=== PATIENT | female | born 1995 | race Caucasian/White ===

== ENCOUNTER 2019-07-17 14:54 | Observation (INO) | payer OTHER, SELFPAY ==
[2019-07-17 15:30] VITALS: BMI 35.5
[2019-07-17 15:31] VITALS: BP 119/81; PULSE 96
[2019-07-17 15:35] LABS: Add Urine Microscopic? YES; Appearance Urine Cloudy (Clear); Bacteria Urine Trace /hpf; Bilirubin Urine Negative (Negative); Blood Urine Negative (Negative); Color Urine Straw (Yellow); Glucose Urine UA Negative (Negative); Ketones Urine Negative (Negative); Leukocyte Esterase Ur 1+ LEU/UL (NEGATIVE); Mucus Urine Rare /lpf; Nitrate Urine Negative (Negative); Protein Urine Negative (Negative); RBC Urine 0-2 /hpf (0-2); Specific Grav Ur 1.008 (1.001-1.035); Squamous Epithelial Cell Urine Many /hpf (Few); Urobilinogen Urine Negative mg/dL (<2.0); WBC Urine 0-3 /hpf (0-3)
[2019-07-17 15:45] VITALS: BP 125/81; PULSE 89
[2019-07-17 16:01] VITALS: BP 124/73; PULSE 94
--- NOTE | 2019-07-17 16:14 | OBADM ---
This patient, Tanja Jackson, admitted to the OB room OB Post 115 for observation. Patient/family oriented to hospital policies and general routines including ID bracelet, bed and alarms, visiting hours, pain management, procedures, bathroom and other care routines, personal items, smoking policy, room service/diet, and visiting hours. Patient/Family are encouraged to report perceived risks to care and to ask questions if they do not understand what they are told or what they should do.
--- NOTE | 2019-08-11 19:51 | P.PNOB_ITS ---
OB - Triage/Final Diagnosis Evaluation Laboratory results: Laboratory Tests 07/17/19 15:22 Urine Color Straw Urine Appearance Cloudy H Urine pH 7.0 Ur Specific White [place] 1.008 Urine Protein Negative Urine Glucose (UA) Negative Urine Ketones Negative Ur Blood (Man) Negative Urine Nitrate Negative Urine Bilirubin Negative Urine Urobilinogen Negative Ur Leukocyte Esterase 1+ H Urine RBC 0-2 Urine WBC 0-3 Ur Squamous Epith Cells Many H Urine Bacteria Trace Urine Mucus Rare Final Diagnosis (1) Vaginal pain: Code(s): R10.2 - Pelvic and perineal pain Status: Acute
== END 2019-07-17 16:05 | disposition home or self-care (01) ==
PROVIDERS: Admitting Provider Obstetrics & Gynecology; Visit Provider Obstetrics & Gynecology
DX: O26.893 Other specified pregnancy related conditions, third trimester (principal); R10.2 Pelvic and perineal pain; Z3A.33 33 weeks gestation of pregnancy
CPT/HCPCS: 81001; 87086; G0378; G0379

== ENCOUNTER 2019-08-09 19:40 | Observation (INO) | payer OTHER, SELFPAY ==
[2019-08-09 19:45] VITALS: BMI 35.0
--- NOTE | 2019-08-09 22:41 | OBADM ---
This patient, Tanja Jackson, admitted to the OB room Labor/Delivery/Recovery 108 for observation. Patient/family oriented to hospital policies and general routines including ID bracelet, bed and alarms, visiting hours, pain management, procedures, bathroom and other care routines, personal items, smoking policy, room service/diet, and visiting hours. Patient/Family are encouraged to report perceived risks to care and to ask questions if they do not understand what they are told or what they should do.
--- NOTE | 2019-08-13 07:53 | PM.OBTRLD ---
OB - Triage/Final Diagnosis Visit Information Date of evaluation: 08/09/19 Reason for evaluation: threatened labor
--- NOTE | 2019-08-15 07:21 | PM.OBTRLD ---
OB - Triage/Final Diagnosis Visit Information Date of evaluation: 08/12/19 Reason for evaluation: threatened labor
== END 2019-08-09 22:30 | disposition home or self-care (01) ==
PROVIDERS: Admitting Provider Obstetrics & Gynecology; Visit Provider Obstetrics & Gynecology
DX: O47.03 False labor before 37 completed weeks of gestation, third trimester (principal); Z3A.36 36 weeks gestation of pregnancy
CPT/HCPCS: G0378; G0379

== ENCOUNTER 2019-08-21 21:47 | Outpatient (CLI) | payer OTHER, SELFPAY | END 2019-08-21 23:20 | disposition home or self-care (01) | PROVIDERS: Visit Provider Obstetrics & Gynecology | DX: O42.90 Premature rupture of membranes, unspecified as to length of time between rupture and onset of labor, unspecified weeks of gestation (principal); Z3A.00 Weeks of gestation of pregnancy not specified | CPT/HCPCS: 59025; 84112 ==

== ENCOUNTER 2019-08-27 04:50 | Inpatient (IN) | payer OTHER, SELFPAY ==
[2019-08-27] VITALS (83 sets, daily range): BP systolic 92–135; BP diastolic 46–122; PULSE 65–134; RESP 16; TEMP 36.3–36.6; O2SAT 95–100; BMI 35.9
--- NOTE | 2019-08-27 05:22 | LDADM ---
This patient, Tanja Jackson, was admitted to Labor/Delivery/Recovery 103 on 08/27/19 at 04:50. Plans for labor, pain management and were discussed with patient. Patient/family oriented to hospital policies and general routines including ID bracelet, bed and alarms, visiting hours, pain management, procedures, bathroom and other care routines, personal items, smoking policy, room service/diet and guest tray routines, security routines, and visiting hours. Patient/Family are encouraged to report perceived risks to care and to ask questions if they do not understand what they are told or what they should do. See OBIX for further documentation.
[2019-08-27] MEDS: LACTATED RINGERS 1,000 ML 125 ML IV CONT ×3 (05:34→09:51)
[2019-08-27 05:46] LABS: Basophils Percent Auto 0.3 % (0.2-1.2); Eosinophils Absolute Auto 0.1 K/mm3 (0-0.3); Eosinophils Percent Auto 0.6 % (0-4.4); Hematocrit 36.9 % (37.0-47.0); Hemoglobin 11.6 g/dL (12.0-15.0); Immature Granulocyte Absolute 0.05 K/mm3 (0.00-0.031); Immature Granulocyte Percent A 0.5 % (0-0.5); Lymphocytes Absolute Auto 2.91 K/mm3 (0.9-3.2); Lymphocytes Percent Auto 29.3 % (18.3-44.2); Mean Corpuscular HGB Conc 31.4 g/dl (32-36); Mean Corpuscular Hemoglobin 27.4 pg (26-34); Mean Platelet Volume 11.8 fl (7.4-10.4); Monocytes Percent Auto 9.6 % (2.6-8.5); Neutrophils Absolute Auto 5.9 K/mm3 (1.3-6.7); Neutrophils Percent Auto 59.7 % (45.5-73.1); Platelet Count Result 265 k/mm3 (150-375); Red Blood Count 4.24 M/mm3 (4.2-5.4); Red Cell Distribution Width 14.6 % (11.5-14.5); White Blood Count 9.9 K/mm3 (4.5-10.0)
--- NOTE | 2019-08-27 07:30 | WPDOBADMIT ---
Obstetrics - Admit Note Admission Note: record reviewed. No pertinent additions to the history and/or any subsequent changes in the physical findings that are not consistent with the expected course of the were found. MIL AROM large amount of clear odorless fluid Additions to the history and/or subsequent changes in the physical findings follow. None.
--- NOTE | 2019-08-27 09:35 | P.PNAN_ITS ---
Anes - Eval Pre Procedure Procedure: labor epidural Date/Time: 08/27/19 09:35 Surgeon: Tricia Preop Diagnosis: Labor pain Pre Op Diagnosis: Induction of labor Patient Data Age: 24 Gender: F Height: 1.73 m Weight: 107 kg Last Vital Signs Temp 36.5 C 08/27/19 09:00 Pulse 81 08/27/19 09:31 BP 119/68 08/27/19 09:31 Pulse Ox 100 08/27/19 09:32 Allergies Allergy/AdvReac Type Severity Reaction Status Date / Time No Known Allergies Allergy Unverified 01/18/16 09:00 Home Medications Medication Instructions Recorded Confirmed Type Vitamin 1 tablet PO DAILY 07/03/19 08/27/19 History Zyrtec 10 mg PO DAILY 08/06/19 08/06/19 History Laboratory Tests 08/27/19 08/27/19 08/27/19 05:14 05:14 05:14 WBC 9.9 K/mm3 K/mm3 (4.5-10.0) RBC 4.24 M/mm3 M/mm3 (4.2-5.4) Hgb 11.6 g/dL L g/dL (12.0-15.0) Hct 36.9 % L % (37.0-47.0) MCV 87.0 fl fl (80-100) MCH 27.4 pg pg (26-34) MCHC 31.4 g/dl L g/dl (32-36) RDW 14.6 % H % (11.5-14.5) Plt Count 265 k/mm3 k/mm3 (150-375) MPV 11.8 fl H fl (7.4-10.4) Immature Gran % (Auto) 0.5 % % (0-0.5) Neut % (Auto) 59.7 % % (45.5-73.1) Lymph % (Auto) 29.3 % % (18.3-44.2) [place] % (Auto) 9.6 % H % (2.6-8.5) Eos % (Auto) 0.6 % % (0-4.4) Baso % (Auto) 0.3 % % (0.2-1.2) Lymph # (Auto) 2.91 K/mm3 K/mm3 (0.9-3.2) [place] # (Auto) 1.0 K/mm3 H K/mm3 (0.1-0.6) Eos # (Auto) 0.1 K/mm3 K/mm3 (0-0.3) Baso # (Auto) 0.0 K/mm3 K/mm3 (0.0-0.1) Abs Immat Gran (auto) 0.05 K/mm3 H K/mm3 (0.00-0.031) Absolute Neuts (auto) 5.9 K/mm3 K/mm3 (1.3-6.7) Absolute Nucleated RBC 0.0 K/mm3 K/mm3 (0.0-0.012) Nucleated RBC % 0.0 % % (0.0-0.2) RPR Pending Blood Type O Positive Antibody Screen Negative Patient hx anesthesia problems: none Family hx anesthesia problems: none [facility] Family History Family History (Updated 08/06/19 @ 12:11 by Kamala Hernandez RN) Grandparent Breast cancer Social History Social History Smoking status: Never smoker Substance use: never Gender identity (if verbalized by the patient): Female Spiritual care concerns: No Exam Day of Procedure 08/27/19 09:35
[2019-08-27] MEDS: ONDANSETRON INJ 4 MG/2 ML VIAL IV PUSH (09:51)
--- NOTE | 2019-08-27 11:53 | P.PCNOB_ITS ---
OB - Delivery Note Procedure Delivery date: 08/27/19 events: Labor Induction Intrapartal events: None Induction method: AROM and per pitocin protocol Delivery monitor: external FHT and external uterine Route of delivery: Laceration description: Perineal - 1st Degree Delivery repair: vicryl Specimen: No Estimated blood loss (mL): 50 Anesthesia type: Epidural [place] Baby Date of : 08/27/19 Time of : 11:42 Weeks of gestation at delivery: 39 gender: Male Weight (pounds): 7 Weight (ounces): 4 presentation: vertex position: Left Occiput Anterior Placenta delivery description: Spontaneous score one minute: 9 score five minutes: 9
--- NOTE | 2019-08-27 14:16 | PC.NURSE ---
Patient transferred to post room #281 per wheelchair from labor and delivery. Support person present. Oriented to unit, room, information board, rooming in, admission packet and security measures. Patient verbalizes understanding.
[2019-08-27] MEDS: IBUPROFEN 600 MG TABLET PO (16:20)
[2019-08-28 05:42] LABS: Hematocrit 33.7 % (37.0-47.0); Hemoglobin 10.6 g/dL (12.0-15.0)
[2019-08-28 07:21] LABS: Rapid Plasma Reagin Non-Reactive (NonReactive)
--- NOTE | 2019-08-28 07:57 | PM.OBPNVD ---
OB - PN: Subj Subjective Date/time seen: 08/28/19 07:57 Patient comments: no complaints, pain well controlled and other (Lochia similar to menses) [place] baby status: doing well OB - PN: Obj Data Labs CBC & Chem 7: 08/28/19 04:33 Labs: Laboratory Results - last 24 hr 08/27/19 08/28/19 05:14 04:33 Hgb 10.6 L Hct 33.7 L RPR Non-reactive OB - PN A/P Plan day: 1 (s/p vaginal delivery, doing well) Plan: routine care Time Spent With Patient Time: Total time spent is greater than 50% in coordination of care (as documented) at patient's floor/unit and/or counseling patient: Exam Const: General: no acute distress GI: Inspection: other (Fundus firm and nontender at umbilicus) GI Palp: Yes Soft to palpation and No Tenderness to palpation present (GI) Extrem: General: no edema
[2019-08-28 08:40] VITALS: BP 116/63; PULSE 67; RESP 18; TEMP 36.3; O2SAT 99
[2019-08-28] MEDS: MULTIVIT/MIN/PREN/FOL AC/IRON TABLET 1 TAB PO (08:52)
[2019-08-28] MEDS: IBUPROFEN 600 MG TABLET PO (08:52)
--- NOTE | 2019-08-28 10:30 | PC.NURSE ---
Observed mother is able to independently latch with appropriate positioning/alignment. She denies any nipple discomfort, is feeding as required and waking infant to feed if needed. has had 8 effective feedings in the past 24 hours, and is currently meeting outcomes for weight, output, jaundice and feeding frequencies. Mother states she feels confident to continue effective at home. Reviewed transition to breast milk, signs of adequate intake, and engorgement/relief. Instructed to call ICP if intake/output less than required. Reviewed regular medications mother is taking. Information provided per Yoly. Reviewed community resources on the [facility] website and in the Mom/Baby guide. Stressed keeping accurate records of feeding/elimination with 24 hour discharge and call if less than required. Information on outpatient services provided. Mother has no further questions at this time.
--- NOTE | 2019-08-28 11:16 | PC.NURSE ---
Patient instructed on viewing the discharge video Mother & Baby Care, The First Two Weeks . Patient was given the opportunity and encouraged to ask questions. Patient verbalized understanding of information shared and has been given the mother/baby guide for home reference.
--- NOTE | 2019-08-28 12:58 | WPDANLDPN2 ---
Anes-Prog Note L&D Date/Time: 08/28/19 12:58 Comfortable throughout: labor and delivery Neuraxial method: epidural Epidural/Spinal procedure site: clean & non-tender Neuro status: Neuro function grossly intact. Cardiovascular status: normal Respiratory status: normal Airway patency: baseline Mental status: baseline Post-Op hydration status: normal Vital Signs: Last Vital Signs Temp 36.3 C L 08/28/19 08:40 Pulse 67 08/28/19 08:40 Resp 18 08/28/19 08:40 BP 116/63 08/28/19 08:40 Pulse Ox 99 08/28/19 08:40 Pain score (VAS): 0/10. Patient resting in bed at time of assessment, appears comfortable. Support person at bedside. Post-procedural complaints: none Patient feedback: Patient satisfied with anesthetic care.
--- NOTE | 2019-08-29 07:21 | PM.OBDSVD ---
OB - DS: Summary OB Procedures : None OB Procedures Intrapartum: Spontaneous Vag Delivery OB Procedures: : None Time Spent with Patient Time attestation: Total time spent providing and/or coordinating discharge services: DS: Data Data Completed and Pending Labs on day of discharge: Labs from last 24 hours 08/27/19 05:14 RPR Non-reactive Discharge Plan Discharge Attending physician on discharge: Rita Clarke Discharging Clinician: Odalys Velasquez Patient Disposition: Home, Self-Care Activity: may shower and pelvic rest Diet: regular Discharge Instructions: Education: Mom and Baby Guide Given to: Mother Follow-Up: Call your delivering provider's office for an appointment to be seen in: 4 Weeks Mom and baby should come to the [facility] for the follow-up appointment. Appointment Date/Time: August 29, 2019 at 8:00 am What to expect at your follow-up visit: Physical Assessment Call [phone] if you are unable to keep your appointment time. BREAST CARE: 1. Wear a snug supportive bra. 2. For engorgement discomfort: Breast Feeding: A. Apply warm moist washcloths B. Express milk as needed to relieve engorgement C. Wear loose clothing 3. For sore nipples: A. Identify correct latch-on B. Apply warm moist washcloths before and after nursing C. Air dry nipples after nursing D. May apply Lansinoh cream to nipples EPISIOTOMY/PERINEAL CARE: 1. Until bleeding stops, use your harrison bottle after urinating 2. Change your pad frequently throughout the day 3. You may take sitz baths several times a day (fill your bathtub with warm water and soak for 20 minutes.) Do NOT bathe in the water 4. No tub baths until seen by your physician - You may shower ACTIVITY: 1. Rest as much as possible. 2. Do not exercise or lift anything heavier than your baby (such as laundry or other children.) 3. Avoid stairs or driving as much as possible. 4. Do not put anything into the vagina. No douching, tampons, or sexual activity until seen by physician. NOTIFY PHYSICIAN IF YOU HAVE ANY QUESTIONS OR IF ANY OF THE FOLLOWING SYMPTOMS OCCUR: 1. If your incision becomes red, swollen, or more painful than what you have experienced in the hospital. 2. If your vaginal bleeding becomes foul smelling. 3. If your vaginal bleeding becomes more heavy than a period or if your bleeding changes from pink to bright red. However, you may pass an occasional walnut-sized clot once or twice for the first week . 4. If you experience a sharp, shooting pain in you calves. 5. If you discover a hard, reddened area on your breast or if you experience flu-like symptoms. DIET: 1. Eat regular, well-balanced meals. 2. Drink plenty of fluids daily. If , drink to thirst. Stand Alone Forms: General Discharge Information Follow-up/Referrals: Shaunna Kahn CNM [Certified Nurse Produce Weigher] - 4 Weeks Discharge Medications: New ibuprofen 600 mg Tablet 600 mg PO Q6H PRN (Reason: Cramping) Qty: 60 RF: 0 Continued Vitamin 27 mg iron- 0.8 mg Tablet 1 tablet PO DAILY RF: 0 Zyrtec 10 mg Capsule 10 mg PO DAILY RF: 0 Date of admission: 08/27/19 04:50 Primary Care Provider: UNKNOWN,DOCTOR Admitting Provider: Rita Clarke Discharge Date/Time: 08/28/19 14:15 Attending physician on admission: Rita Clarke
[2019-08-29 08:01] VITALS: BP 105/67; PULSE 71; RESP 20; TEMP 36.5
== END 2019-08-28 14:15 | disposition home or self-care (01) | DRG 560 ==
LOC: ANHLDR 05:38 → ANHOB2 08-28 07:59 → ANHLDR 08-29 08:54 → ANHOB2 08-29 08:54
PROVIDERS: Advanced Practice Midwife; Admitting Provider Obstetrics & Gynecology; Visit Provider Obstetrics & Gynecology
DX: O70.0 First degree perineal laceration during delivery (principal); Z37.0 Single live birth; Z3A.39 39 weeks gestation of pregnancy
CPT/HCPCS: 36415; 85014; 85018; 85025; 86592; 86850; 86900; 86901; A9270; J2405; J2590; J2795; J7120

== ENCOUNTER 2020-08-15 21:05 | Inpatient (IN) | payer OTHER, SELFPAY ==
[2020-08-16] VITALS (40 sets, daily range): BP systolic 103–140; BP diastolic 56–84; PULSE 76–109; RESP 16–18; TEMP 36.7–37.3; O2SAT 100; BMI 37.9
[2020-08-16] MEDS: LACTATED RINGERS 1,000 ML 125 ML IV CONT ×2 (02:00→11:14)
[2020-08-16] MEDS: AMPICILLIN 2 GM/NS 100 ML 2 GM/100 ML BAG IVPB (02:01)
[2020-08-16 02:16] LABS: Basophils Percent Auto 0.3 % (0.2-1.2); Eosinophils Absolute Auto 0.1 K/mm3 (0-0.3); Eosinophils Percent Auto 0.5 % (0-4.4); Hematocrit 32.4 % (37.0-47.0); Hemoglobin 10.4 g/dL (12.0-15.0); Immature Granulocyte Absolute 0.04 K/mm3 (0.00-0.031); Immature Granulocyte Percent A 0.4 % (0-0.5); Lymphocytes Absolute Auto 2.46 K/mm3 (0.9-3.2); Lymphocytes Percent Auto 25.8 % (18.3-44.2); Mean Corpuscular HGB Conc 32.1 g/dl (32-36); Mean Corpuscular Hemoglobin 28.8 pg (26-34); Mean Corpuscular Volume 89.8 fl (80-100); Mean Platelet Volume 11.1 fl (7.4-10.4); Monocytes Absolute Auto 0.8 K/mm3 (0.1-0.6); Monocytes Percent Auto 8.2 % (2.6-8.5); Neutrophils Absolute Auto 6.2 K/mm3 (1.3-6.7); Neutrophils Percent Auto 64.8 % (45.5-73.1); Platelet Count Result 202 k/mm3 (150-375); Red Blood Count 3.61 M/mm3 (4.2-5.4); Red Cell Distribution Width 13.8 % (11.5-14.5); White Blood Count 9.5 K/mm3 (4.5-10.0)
--- NOTE | 2020-08-16 02:23 | LDADM ---
This patient, Tanja Jackson, was admitted to Labor/Delivery/Recovery 105 on 08/15/20 at 21:05. Plans for labor, pain management and were discussed with patient. Patient/family oriented to hospital policies and general routines including ID bracelet, bed and alarms, visiting hours, pain management, procedures, bathroom and other care routines, personal items, smoking policy, room service/diet and guest tray routines, security routines, and visiting hours. Patient/Family are encouraged to report perceived risks to care and to ask questions if they do not understand what they are told or what they should do. See OBIX for further documentation.
[2020-08-16] MEDS: AMPICILLIN 1 GM/NS 50 ML 1 GM/50 ML BAG IVPB ×3 (05:55→14:07)
--- NOTE | 2020-08-16 06:32 | WPDANESEPP ---
Anes - Eval Pre Procedure Procedure: Labor epidural Date/Time: 08/16/20 06:32 Surgeon: Tricia Preop Diagnosis: pain during labor Pre Op Diagnosis: CTX Patient Data Age: 25 Gender: F Height: 1.73 m Weight: 113.2 kg Last Vital Signs Temp 36.9 C 08/16/20 02:30 Pulse 90 08/16/20 06:15 Resp 16 08/16/20 02:30 BP 126/68 08/16/20 06:15 Allergies Allergy/AdvReac Type Severity Reaction Status Date / Time No Known Allergies Allergy Verified 08/13/20 15:38 Home Medications Medication Instructions Recorded Confirmed Type Vitamin 1 tablet PO DAILY 07/03/19 08/16/20 History Zyrtec 10 mg PO DAILY 08/06/19 08/16/20 History ibuprofen 600 mg PO Q6H PRN #60 tablet 08/28/19 Rx Laboratory Tests 08/16/20 08/16/20 08/16/20 02:12 02:12 02:12 WBC 9.5 K/mm3 K/mm3 (4.5-10.0) RBC 3.61 M/mm3 L M/mm3 (4.2-5.4) Hgb 10.4 g/dL L g/dL (12.0-15.0) Hct 32.4 % L % (37.0-47.0) MCV 89.8 fl fl (80-100) MCH 28.8 pg pg (26-34) MCHC 32.1 g/dl g/dl (32-36) RDW 13.8 % % (11.5-14.5) Plt Count 202 k/mm3 k/mm3 (150-375) MPV 11.1 fl H fl (7.4-10.4) Immature Gran % (Auto) 0.4 % % (0-0.5) Neut % (Auto) 64.8 % % (45.5-73.1) Lymph % (Auto) 25.8 % % (18.3-44.2) [place] % (Auto) 8.2 % % (2.6-8.5) Eos % (Auto) 0.5 % % (0-4.4) Baso % (Auto) 0.3 % % (0.2-1.2) Lymph # (Auto) 2.46 K/mm3 K/mm3 (0.9-3.2) [place] # (Auto) 0.8 K/mm3 H K/mm3 (0.1-0.6) Eos # (Auto) 0.1 K/mm3 K/mm3 (0-0.3) Baso # (Auto) 0.0 K/mm3 K/mm3 (0.0-0.1) Abs Immat Gran (auto) 0.04 K/mm3 H K/mm3 (0.00-0.031) Absolute Neuts (auto) 6.2 K/mm3 K/mm3 (1.3-6.7) Absolute Nucleated RBC 0.0 K/mm3 K/mm3 (0.0-0.012) Nucleated RBC % 0.0 % % (0.0-0.2) RPR Pending Blood Type O Positive Antibody Screen Negative Patient hx anesthesia problems: none Family hx anesthesia problems: none PMFSH Past Medical History Medical History (Updated 08/16/20 @ 06:33 by Louisa Harris CRNA) IUP (intrauterine ), incidental Obesity (BMI 30-39.9) Family History Family History (Updated 08/13/20 @ 15:41 by Kenneth Olivia RN) Grandparent Breast cancer Acute myocardial infarction Other Ovarian cancer Father Asthma Lazy eye of right side Social History Social History Smoking status: Never smoker Substance use: never Gender identity (if verbalized by the patient): Female Spiritual care concerns: No Exam Day of Procedure 08/16/20 06:32
--- NOTE | 2020-08-16 07:54 | WPDOBADMIT ---
Obstetrics - Admit Note Admission Note: 25 y/o GP3 @ 36w6d here in active labor. VSS GBS positive Regular contractions Cervix /-2 AROM small amount of clear odorless fluid Anticpate record reviewed. No pertinent additions to the history and/or any subsequent changes in the physical findings that are not consistent with the expected course of the were found. Additions to the history and/or subsequent changes in the physical findings follow. None.
[2020-08-16 11:00] LABS: Rapid Plasma Reagin Non-Reactive (NonReactive)
[2020-08-16] MEDS: OXYTOCIN 30 UNITS/NS 500 ML 30 UNITS/500 ML BAG IV CONT (12:30)
--- NOTE | 2020-08-16 15:03 | PM.OBPRVD ---
OB - Delivery Note Procedure Delivery date: 08/16/20 Procedure: events: Labor < 37 Weeks Intrapartal events: None Induction method: none Delivery augmentation: pitocin Delivery monitor: external FHT, external uterine and internal FHT Route of delivery: Episiotomy description: None Laceration Description: None Quantitative Blood Loss (ml): 52 Anesthesia type: None Narrative: Mother and baby in stable condition. Cord gasses collected and handed off to staff. Baby Date of : 08/16/20 Time of : 14:48 Weeks of gestation at delivery: 36 Weight (pounds): 6 Weight (ounces): 7 presentation: vertex position: Right Occiput Anterior Placenta delivery description: Spontaneous cord vessel description: Delayed Cord Clamping score one minute: 9 score five minutes: 9
[2020-08-16] MEDS: OXYTOCIN 30 UNITS/NS 500 ML 30 UNITS/500 ML BAG 125 UNITS IV CONT (15:27)
[2020-08-16] MEDS: IBUPROFEN 600 MG TABLET PO (18:40)
[2020-08-17] VITALS: BP 116/61; PULSE 87; RESP 18; TEMP 36.4; O2SAT 98
[2020-08-17 04:15] VITALS: BP 113/64; PULSE 68; RESP 18; TEMP 36.7; O2SAT 99
[2020-08-17 05:37] LABS: Hemoglobin 10.2 g/dL (12.0-15.0)
--- NOTE | 2020-08-17 07:49 | PM.OBPNVD ---
OB - PN: Subj Subjective Date/time seen: 08/17/20 07:49 Patient comments: no complaints baby status: doing well OB - PN: Obj Data Labs CBC & Chem 7: 08/17/20 04:41 Labs: Laboratory Results - last 24 hr 08/16/20 08/17/20 02:12 04:41 Hgb 10.2 L Hct 32.0 L RPR Non-reactive OB - PN A/P Time Spent With Patient Time: Total time spent is greater than 50% in coordination of care (as documented) at patient's floor/unit and/or counseling patient: Review of Systems Review of Systems: All systems reviewed & are unremarkable except as noted in HPI and below Exam Const: General: cooperative Limitations: no limitations Resp: Effort & Inspection: normal respiratory effort Psych: Attitude: cooperative Thought process: Normal thought process present Thought content: Yes Normal thought content present Insight: Good insight present (Psych) Judgement: Good judgement present (Psych)
--- NOTE | 2020-08-17 07:51 | PM.OBDSVD ---
DS: Admitting Diagnosis Admitting Diagnosis Admitting Diagnosis: labor OB - DS: Summary OB Procedures : None OB Procedures Intrapartum: Spontaneous Vag Delivery OB Procedures: : None Time Spent with Patient Time attestation: Total time spent providing and/or coordinating discharge services: DS: Data Data Completed and Pending Pending studies at discharge: Pending at discharge 08/16/20 14:57 Surgical [PTH] Routine Labs on day of discharge: Labs from last 24 hours 08/17/20 08/16/20 04:41 02:12 Hgb 10.2 L Hct 32.0 L RPR Non-reactive Discharge Plan Discharge Attending physician on discharge: Rita Clarke Consulting providers: Claus Gamboa Discharging Clinician: Shaunna Kahn Patient Disposition: Home, Self-Care Activity: pelvic rest Diet: regular Patient Instructions: Antibiotic Form Stand Alone Forms: General Discharge Information Follow-up/Referrals: Deborah Kirkland CNM [Certified Nurse Product Management Intern] - 4 Weeks Discharge Medications: Continued Vitamin 27 mg iron- 0.8 mg Tablet 1 tablet PO DAILY RF: 0 Zyrtec 10 mg Capsule 10 mg PO DAILY RF: 0 Discontinued ibuprofen 600 mg Tablet 600 mg PO Q6H PRN (Reason: Cramping) Qty: 60 RF: 0 Date of admission: 08/15/20 21:05 Primary Care Provider: PHYSICIAN,LUMBER SALES SUPERVISOR Admitting Provider: Rita Clarke Attending physician on admission: Rita Clarke Condition: Stable
[2020-08-17] MEDS: MULTIVIT/MIN/PREN/FOL AC/IRON TABLET 1 TAB PO (08:14)
[2020-08-17] MEDS: IBUPROFEN 600 MG TABLET PO ×2 (08:14→17:06)
[2020-08-17] MEDS: LANOLIN (LANSINOH) 7.5 GM CREAM 1 APPLIC TOPICAL (08:15)
[2020-08-17 08:25] VITALS: BP 119/78; PULSE 66; RESP 16; TEMP 36.6; O2SAT 100
--- NOTE | 2020-08-17 10:29 | PC.NURSE ---
Patient viewed the discharge video Mother & Baby Care, The First Two Weeks . Patient was given the opportunity and encouraged to ask questions. Patient verbalized understanding of information shared and has been given the mother/baby guide for home reference.
[2020-08-17 11:53] VITALS: BP 109/70; PULSE 79; RESP 18; TEMP 37.2; O2SAT 99
[2020-08-17] MEDS: DOCUSATE SODIUM 100 MG CAPSULE PO (17:06)
[2020-08-17 20:30] VITALS: BP 122/83; PULSE 81; RESP 16; TEMP 36.6; O2SAT 98
[2020-08-18] MEDS: IBUPROFEN 600 MG TABLET PO (05:25)
--- NOTE | 2020-08-18 07:26 | PM.OBPNVD ---
OB - PN: Subj Subjective Date/time seen: 08/18/20 07:26 Patient comments: no complaints baby status: doing well OB - PN: Obj Data Labs CBC & Chem 7: 08/17/20 04:41 OB - PN A/P Plan day: 2 Plan: routine care and discharge home Time Spent With Patient Time: Total time spent is greater than 50% in coordination of care (as documented) at patient's floor/unit and/or counseling patient: Exam Const: General: cooperative Nutritional Appearance: average body habitus Limitations: no limitations
--- NOTE | 2020-08-18 07:27 | PM.OBDSVD ---
DS: Admitting Diagnosis Admitting Diagnosis Admitting Diagnosis: labor OB - DS: Summary OB Procedures : None OB Procedures Intrapartum: Spontaneous Vag Delivery OB Procedures: : None Time Spent with Patient Time attestation: Total time spent providing and/or coordinating discharge services: DS: Data Data Completed and Pending Pending studies at discharge: Pending at discharge 08/16/20 14:57 Surgical [PTH] Routine Discharge Plan Discharge Attending physician on discharge: Rita Clarke Consulting providers: Claus Gamboa Discharging Clinician: Shaunna Kahn Patient Disposition: Home, Self-Care Activity: pelvic rest Diet: regular Patient Instructions: Antibiotic Form Stand Alone Forms: General Discharge Information Follow-up/Referrals: Deborah Kirkland CNM [Certified Nurse Shuttle Car Operator] - 4 Weeks Discharge Medications: Continued Vitamin 27 mg iron- 0.8 mg Tablet 1 tablet PO DAILY RF: 0 Zyrtec 10 mg Capsule 10 mg PO DAILY RF: 0 Discontinued ibuprofen 600 mg Tablet 600 mg PO Q6H PRN (Reason: Cramping) Qty: 60 RF: 0 Date of admission: 08/15/20 21:05 Primary Care Provider: PHYSICIAN,CAMPAIGN FUNDRAISER Admitting Provider: Rita Clarke Attending physician on admission: Rita Clarke Condition: Stable
[2020-08-18 07:30] VITALS: BP 126/77; PULSE 64; RESP 18; TEMP 36.8; O2SAT 98
[2020-08-18] MEDS: MULTIVIT/MIN/PREN/FOL AC/IRON TABLET 1 TAB PO (08:42)
[2020-08-20 11:23] VITALS: BP 127/77; PULSE 76; RESP 16; TEMP 36.6; O2SAT 99
== END 2020-08-18 12:23 | disposition home or self-care (01) | DRG 807 ==
LOC: ANHLDR 08-16 01:51 → ANHOB2 08-16 17:21
PROVIDERS: Advanced Practice Midwife; Admitting Provider Obstetrics & Gynecology; Visit Provider Obstetrics & Gynecology
DX: O80 Encounter for full-term uncomplicated delivery (principal); Z37.0 Single live birth; Z3A.36 36 weeks gestation of pregnancy
CPT/HCPCS: 36415; 85014; 85018; 85025; 86592; 86850; 86900; 86901; 88307; A9270; J0290; J2590; J2795; J7120

== ENCOUNTER 2020-10-21 09:21 | Outpatient (CLI) | payer OTHER, SELFPAY ==
[2020-10-21 10:24] LABS: Beta HCG Quantitative < 2.39 mIU/ML
== END 2020-10-21 09:22 | disposition home or self-care (01) ==
PROVIDERS: Visit Provider Advanced Practice Midwife
DX: N93.9 Abnormal uterine and vaginal bleeding, unspecified (principal)
CPT/HCPCS: 36415; 84702

== ENCOUNTER 2020-12-28 11:05 | Outpatient (CLI) | payer OTHER, SELFPAY ==
[2020-12-28 11:55] LABS: Beta HCG Quantitative < 2.39 mIU/ML
== END 2020-12-28 11:06 | disposition home or self-care (01) ==
PROVIDERS: Visit Provider Advanced Practice Midwife
DX: Z32.01 Encounter for pregnancy test, result positive (principal)
CPT/HCPCS: 36415; 84702